=== PATIENT | female | born 1985 | race Two or more races ===

== ENCOUNTER 2025-06-07 22:20 | Inpatient (IN) | payer OTHER ==
[~2025-06-07] VITALS: Ht 154.9 cm; Wt 56.7 kg
[2025-06-07] MEDS ORDERED: RINGERS SOLUTION,LACTATED 1,000 ML IV SCH (22:30)
[2025-06-07] MEDS ORDERED: CEFAZOLIN SODIUM 1,000 MG VIAL IV SCH (22:30)
[2025-06-07 22:50] VITALS: BP 116/70
[2025-06-07 23:01] LABS: URINE APPEARANCE Clear; URINE BILIRRUBIN Negative (NEGATIVE); URINE BLOOD Negative; URINE COLOR Yellow; URINE GLUCOSE Negative (NEGATIVE); URINE LEUKOCYTE Negative; URINE NITRATE Negative; URINE PROTEIN Negative (NEGATIVE); URINE UROBILINOGEN 1.0 E.U./dl
[2025-06-07 23:04] LABS: URINE BACTERIA 243.5 uL (0.0-1933); URINE EPITHELIAL CELLS 17.2 uL (0.0-38.8); URINE RBC 2.3 uL (0.0-20.8); URINE WBC 8.9 uL (0.0-23.2)
[2025-06-07 23:11] LABS: BASO % 0.4 % (0.1-1.2); EOS % 0.8 % (0.7-7.0); LYMPH % 13.2 % (19.3-53.1); MONO % 10.4 % (4.7-12.5); NEUT % 74.7 % (34.0-71.1); RED CELL DISTRIBUTION WIDTH 13.4 % (11.6-14.4)
[2025-06-07 23:12] LABS: EOS # 0.07 (0.04-0.54); LYMPH # 1.09 (1.18-3.74); MONO # 0.86 (0.24-0.82); NEUT # 6.18 (1.56-6.13)
[2025-06-07 23:13] LABS: MEAN PLATELET VOLUME 11.90 fl (9.4-12.4)
[2025-06-07 23:15] LABS: URINE CAST 0.43 uL (0.0-1.40); URINE KETONE 80 (NEGATIVE)
[2025-06-07 23:25] LABS: ALT/SGPT 30.0 U/L (12-78); AST/SGOT 30.0 U/L (15-37); BILIRUBIN TOTAL 0.59 mg/dL (0.3-1.2); BUN CREA RATIO 19.0 (7.0-25.0); CREATININE SERUM 0.73 mg/dL (0.55-1.02); GFR 87.85; GLOBULINA 3.9 G/DL (2.4-3.5); GLUCOSE FASTING 87.0 mg/dL (65-100); OSMOLALITY SERUM 279.0 MOSM/KG (275-295)
[2025-06-07] MEDS ORDERED: LEVOTHYROXINE25 MCG PO (23:30)
[2025-06-07 23:33] LABS: INR 0.97
[2025-06-08 00:18] VITALS: BP 97/60
[2025-06-08] MEDS ORDERED: OXYTOCIN 10 UNITS/ML VIAL ONE (00:32)
[2025-06-08] MEDS ORDERED: KETOROLAC TROMETHAMINE 60 MG VIAL IM ONE ×2 (03:00→03:05)
[2025-06-08 04:35] VITALS: BP 114/66
[2025-06-08] MEDS ORDERED: MORPHINE SULFATE 4 MG/ML CARTRIDGE IV SCH (05:00)
[2025-06-08] MEDS ORDERED: ACETAMINOPHEN 325 MG TABLET PO SCH (08:00)
[2025-06-08] MEDS ORDERED: OxyCODONE HCL 5 MG TABLET (ROXICODONE) PO SCH ×2 (08:00→20:00)
[2025-06-08] MEDS ORDERED: SIMETHICONE 125 MG CAPSULE PO NR (08:00)
[2025-06-08 08:57] VITALS: BP 97/59
[2025-06-08] MEDS ORDERED: DOCUSATE SODIUM 100MG CAP PO SCH (09:00)
[2025-06-08 09:28] LABS: BASO % 0.3 % (0.1-1.2); EOS # 0.07 (0.04-0.54); EOS % 0.7 % (0.7-7.0); LYMPH # 1.25 (1.18-3.74); LYMPH % 11.9 % (19.3-53.1); MEAN PLATELET VOLUME 12.30 fl (9.4-12.4); MONO # 0.85 (0.24-0.82); MONO % 8.1 % (4.7-12.5); NEUT # 8.27 (1.56-6.13); NEUT % 78.6 % (34.0-71.1); RED CELL DISTRIBUTION WIDTH 13.5 % (11.6-14.4)
[2025-06-08] MEDS ORDERED: KETOROLAC TROMETHAMINE 30 MG VIAL IM STA (12:46)
[2025-06-08 17:07] VITALS: BP 107/67
[2025-06-08] MEDS ORDERED: KETOROLAC TROMETHAMINE 10 MG TABLET PO SCH (18:00)
[2025-06-08] MEDS ORDERED: KETOROLAC TROMETHAMINE 30 MG VIAL IM SCH (18:00)
[2025-06-08 18:06] LABS: BASO % 0.4 % (0.1-1.2); EOS # 0.13 (0.04-0.54); EOS % 1.0 % (0.7-7.0); LYMPH # 1.19 (1.18-3.74); LYMPH % 9.1 % (19.3-53.1); MEAN PLATELET VOLUME 12.00 fl (9.4-12.4); MONO # 0.97 (0.24-0.82); MONO % 7.4 % (4.7-12.5); NEUT # 10.72 (1.56-6.13); NEUT % 81.8 % (34.0-71.1); RED CELL DISTRIBUTION WIDTH 13.7 % (11.6-14.4)
[2025-06-08] MEDS ORDERED: IBU800 MG PO (18:28)
[2025-06-08] MEDS ORDERED: PERCOCET 5-3251 EACH PO (18:28)
[2025-06-08] MEDS ORDERED: PEPCID AC20 MG PO (18:28)
[2025-06-09 00:56] VITALS: BP 105/66
[2025-06-09 07:19] LABS: BASO % 0.6 % (0.1-1.2); EOS # 0.25 (0.04-0.54); EOS % 2.0 % (0.7-7.0); LYMPH # 1.64 (1.18-3.74); LYMPH % 13.1 % (19.3-53.1); MEAN PLATELET VOLUME 12.30 fl (9.4-12.4); MONO # 0.90 (0.24-0.82); MONO % 7.2 % (4.7-12.5); NEUT # 9.65 (1.56-6.13); NEUT % 76.7 % (34.0-71.1); RED CELL DISTRIBUTION WIDTH 14.0 % (11.6-14.4)
[2025-06-09 08:00] VITALS: BP 99/66
[2025-06-09 17:14] VITALS: BP 113/72
[2025-06-09] MEDS ORDERED: SIMETHICONE 125 MG CAPSULE PO SCH (18:00)
== END 2025-06-09 19:27 | disposition home or self-care (01) | DRG 786 ==
LOC: LDR 22:20 → OB/GYN 22:20
PROVIDERS: Obstetrics & Gynecology; ADMIT Specialist; ATTEND Specialist
PROC: 4A1HXCZ Monitoring of Products of Conception, Cardiac Rate, External Approach (ICD-10-PCS; 2025-06-07)
PROC: 10D00Z1 Extraction of Products of Conception, Low, Open Approach (ICD-10-PCS; principal; 2025-06-08)
DX: O36.4XX0 Maternal care for intrauterine death, not applicable or unspecified (principal); O60.14X0 Preterm labor third trimester with preterm delivery third trimester, not applicable or unspecified; O99.12 Other diseases of the blood and blood-forming organs and certain disorders involving the immune mechanism complicating childbirth; Z3A.35 35 weeks gestation of pregnancy; D69.6 Thrombocytopenia, unspecified; Z37.1 Single stillbirth